=== PATIENT | female | born 1935 | race Caucasian/White ===

== ENCOUNTER 2018-08-30 10:03 | Outpatient (CLI) | payer MEDICARE, OTHER ==
--- NOTE | 2018-08-30 12:33 | RAD ---
LEFT KNEE: 08/30/18 Four views. HISTORY: Knee pain. Joint spaces are preserved. Very mild degenerative changes seen. Minimal spurring from the condyles a nd patella. No joint effusion. IMPRESSION: Mild degenerative change. POS: COMFORT
--- NOTE | 2018-08-30 12:34 | RAD ---
RIGHT KNEE: 08/30/18 Four views. HISTORY: Knee pain. Joint spaces are preserved. Mild degenerative changes evident. Mild spurring from condyles and [place]. No joint effusion. IMPRESSION: Mild degenerative change. POS: COMFORT
== END 2018-08-30 10:04 | disposition home or self-care (01) ==
LOC: BICRAD 10:03
PROVIDERS: ATTEND Physician Assistant Medical
DX: M25.561 Pain in right knee (principal); M25.562 Pain in left knee; M17.0 Bilateral primary osteoarthritis of knee

== ENCOUNTER 2019-02-15 08:19 | Outpatient (CLI) | payer MEDICARE, OTHER ==
--- NOTE | 2019-02-15 08:36 | RAD ---
XR Shoulder Lt 3 View STANDARD: 02/15/2019 12:00 AM CLINICAL INDICATION: Pain COMPARISON: None. FINDINGS: Fracture:No fracture. Arthropathy:Moderate to severe osteoarthritis, left shoulder Incidental findings:Partially imaged left cardiac pacing device IMPRESSION: 1. No acute osseous abnormality. 2. 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
== END 2019-02-15 08:20 | disposition home or self-care (01) ==
LOC: BICRAD 08:19
PROVIDERS: ATTEND Nurse Practitioner Family
DX: M25.512 Pain in left shoulder (principal); M19.012 Primary osteoarthritis, left shoulder